=== PATIENT | male | born 1940 | race Caucasian/White ===

== ENCOUNTER 2023-07-10 11:41 | Outpatient (CLI) | payer MEDICARE, BC ==
[~2023-07-10 11:41] MED LIST: ATORVASTATIN PO; LISINOPRIL PO; TRAZ-256 PO; ZOLP10TA5 PO
[2023-07-10 12:24] LABS: BASOPHILS % (AUTO) 0.6 % (0-1); EOSINOPHILS # (AUTO) 0.1 X10'3 (0-0.9); EOSINOPHILS % (AUTO) 1.3 % (0-6); HEMATOCRIT 23.3 % (42.0-52.0); HEMOGLOBIN 7.5 g/dl (14.0-17.9); LYMPHOCYTES # (AUTO) 0.6 X10'3 (1.1-4.8); LYMPHOCYTES % (AUTO) 7.1 % (21-51); MEAN CORPUSCULAR HEMOGLOBIN 22.9 PG (27.0-31.0); MEAN CORPUSCULAR HGB CONC 32.1 g/dL (33.0-36.5); MEAN CORPUSCULAR VOLUME 71.3 FL (78-98); MEAN PLATELET VOLUME 7.5 FL (7.4-10.4); MONOCYTES # (AUTO) 0.6 X10'3 (0-0.9); MONOCYTES % (AUTO) 7.1 % (2-12); NEUTROPHILS # (AUTO) 6.8 X10'3 (1.8-7.7); NEUTROPHILS % (AUTO) 83.9 % (42-75); PLATELET COUNT 301 X10'3 (140-440); RED BLOOD COUNT 3.26 X10'6 (4.70-6.10); RED CELL DISTRIBUTION WIDTH 20.3 % (11.5-14.5); WHITE BLOOD COUNT 8.1 X10'3 (4.5-11.0)
[2023-07-10 12:30] LABS: ALBUMIN 3.3 G/DL (3.4-5.0); ANION GAP 10 (8-16); BLOOD UREA NITROGEN 40 MG/DL (7-18); BUN/CREATININE RATIO 25.2 (10.0-20.0); CALCIUM 8.7 MG/DL (8.5-10.1); CHLORIDE 107 MMOL/L (99-107); CREATININE 1.59 MG/DL (0.60-1.10); GLUCOSE 111 MG/DL (70-104); POTASSIUM 4.1 MMOL/L (3.5-5.1); SODIUM 141 MMOL/L (135-145); TOTAL CARBON DIOXIDE 24.2 MMOL/L (24-32); eGFR 42 ML/MIN
[2023-07-10 12:33] LABS: APTT 26 SECONDS (22-32); PROTHROMBIN TIME 9.9 SECONDS (9.0-12.0)
[2023-07-10 12:35] LABS: INR 0.9 INR
[2023-07-10 13:12] LABS: PLATELET ESTIMATE NORMAL
[2023-07-10 13:13] LABS: ANISOCYTOSIS 3+; ELLIPTOCYTES FEW; HYPOCHROMASIA 1+; MICROCYTOSIS 1+; POLYCHROMASIA 1+; SPHEROCYTES FEW
== END 2023-07-10 23:59 | disposition home or self-care (01) ==
LOC: LAB 11:41 → EDSTATUS 07-13 18:00
PROVIDERS: ATTEND Student in an Organized Health Care Education/Training Program
DX: I65.23 Occlusion and stenosis of bilateral carotid arteries (principal); R06.02 Shortness of breath; I10 Essential (primary) hypertension; E78.5 Hyperlipidemia, unspecified; R42 Dizziness and giddiness; R01.1 Cardiac murmur, unspecified; I20.8 Other forms of angina pectoris
CPT/HCPCS: 36415; 80048; 85008; 85025; 85610; 85730

== ENCOUNTER 2023-07-17 11:46 | Day surgery (SDC) | payer MEDICARE, BC ==
[~2023-07-17] VITALS: Ht 175.3 cm; Wt 100.8 kg
[2023-07-17] MEDS ORDERED: normal saline 1,000 ML IV SCH (12:15)
[2023-07-17] MEDS ORDERED: diphenhydrAMINE 25mg capsule PO PRN (12:15)
[2023-07-17] MEDS ORDERED: LORazepam 0.5 MG tablet PO PRN (12:15)
[2023-07-17 12:20] VITALS: BP 103/61; PULSE 82; RESP 16; TEMP 98.2; O2SAT 97
[2023-07-17] MEDS ORDERED: ATOR-2 PO (12:22)
[2023-07-17] MEDS ORDERED: LISI1TAB51 PO (12:22)
[2023-07-17] MEDS ORDERED: TADA20TA43 PO (12:23)
[2023-07-17] MEDS ORDERED: FLO0.4C (12:23)
[2023-07-17] MEDS ORDERED: CLOP75TA34 PO (12:23)
[2023-07-17 12:56] LABS: BASOPHILS # (AUTO) 0.1 X10'3 (0-0.2); BASOPHILS % (AUTO) 1.1 % (0-1); EOSINOPHILS # (AUTO) 0.2 X10'3 (0-0.9); EOSINOPHILS % (AUTO) 4.3 % (0-6); LYMPHOCYTES # (AUTO) 0.7 X10'3 (1.1-4.8); LYMPHOCYTES % (AUTO) 13.8 % (21-51); MEAN CORPUSCULAR HEMOGLOBIN 21.8 PG (27.0-31.0); MEAN CORPUSCULAR HGB CONC 30.9 g/dL (33.0-36.5); MEAN CORPUSCULAR VOLUME 70.7 FL (78-98); MEAN PLATELET VOLUME 6.9 FL (7.4-10.4); MONOCYTES # (AUTO) 0.7 X10'3 (0-0.9); MONOCYTES % (AUTO) 13.7 % (2-12); NEUTROPHILS # (AUTO) 3.6 X10'3 (1.8-7.7); NEUTROPHILS % (AUTO) 67.1 % (42-75); PLATELET COUNT 333 X10'3 (140-440); RED BLOOD COUNT 2.88 X10'6 (4.70-6.10); RED CELL DISTRIBUTION WIDTH 19.3 % (11.5-14.5); WHITE BLOOD COUNT 5.4 X10'3 (4.5-11.0)
[2023-07-17 13:00] LABS: HEMATOCRIT 20.4 % (42.0-52.0); HEMOGLOBIN 6.3 g/dl (14.0-17.9)
--- NOTE | 2023-07-17 13:00 | NUR ---
Critical H/H called to Dr. Cannon pt advised to go to ER.
[2023-07-17 13:04] LABS: ALBUMIN 3.1 G/DL (3.4-5.0); ANION GAP 7 (8-16); BLOOD UREA NITROGEN 29 MG/DL (7-18); BUN/CREATININE RATIO 20.1 (10.0-20.0); CALCIUM 8.6 MG/DL (8.5-10.1); CHLORIDE 109 MMOL/L (99-107); CREATININE 1.44 MG/DL (0.60-1.10); GLUCOSE 95 MG/DL (70-104); SODIUM 140 MMOL/L (135-145); TOTAL CARBON DIOXIDE 23.8 MMOL/L (24-32); eCRCL 40 ML/MIN; eGFR 47 ML/MIN
[2023-07-17 13:09] LABS: APTT 27 SECONDS (22-32); PROTHROMBIN TIME 10.4 SECONDS (9.0-12.0)
[2023-07-17 13:25] LABS: ANISOCYTOSIS 2+; HYPOCHROMASIA 1+; MICROCYTOSIS 1+; PLATELET ESTIMATE NORMAL
[2023-07-17 13:26] LABS: ELLIPTOCYTES FEW; POLYCHROMASIA FEW; ROULEAUX 1+; SCHISTOCYTES FEW
--- NOTE | 2023-07-17 13:28 | NUR ---
Pt taken to ER bed 13 via WC with all belongings.
[2023-07-17] MEDS ORDERED: FINA5TAB11 PO (15:58)
[2023-07-17] MEDS ORDERED: FLO0.4C PO (15:58)
[2023-07-17] MEDS ORDERED: IBUP-1984 PO (15:59)
[2023-07-17] MEDS ORDERED: MELA3TAB41 PO (15:59)
[2023-07-17] MEDS ORDERED: ACET-812 PO (16:01)
== END 2023-07-17 13:45 | disposition home or self-care (01) ==
LOC: SSTAY O 11:46
PROVIDERS: ATTEND Student in an Organized Health Care Education/Training Program
DX: R07.89 Other chest pain (principal); Z53.8 Procedure and treatment not carried out for other reasons; R06.02 Shortness of breath; I10 Essential (primary) hypertension; E78.5 Hyperlipidemia, unspecified; I65.29 Occlusion and stenosis of unspecified carotid artery; Z79.899 Other long term (current) drug therapy; Z79.01 Long term (current) use of anticoagulants; Z88.2 Allergy status to sulfonamides
CPT/HCPCS: 36415; 80048; 85008; 85025; 85610; 85730; 93005; J7030

== ENCOUNTER 2023-07-17 13:49 | Inpatient (IN) | payer MEDICARE, BC ==
[~2023-07-17] VITALS: Ht 175.3 cm; Wt 102.3 kg
[~2023-07-17 13:49] MED LIST changes: +ATOR-2 PO; +CLOP75TA34 PO; +FLO0.4C; +LISI1TAB51 PO; +TADA20TA43 PO
[2023-07-17] MEDS ORDERED: pantoprazole 40mg IV 80 MG in normal saline 100ml IV soln 100 ML IV ONE (15:05)
--- NOTE | 2023-07-17 15:09 | NUR ---
tech attempted to do pt EKG, doctor in the room upon arrival. Doc postponed EKG.
[2023-07-17 15:47] LABS: BASOPHILS # (AUTO) 0.1 X10'3 (0-0.2); EOSINOPHILS # (AUTO) 0.3 X10'3 (0-0.9); EOSINOPHILS % (AUTO) 3.5 % (0-6); HEMATOCRIT 23.7 % (42.0-52.0); HEMOGLOBIN 7.5 g/dl (14.0-17.9); LYMPHOCYTES # (AUTO) 1.1 X10'3 (1.1-4.8); LYMPHOCYTES % (AUTO) 14.6 % (21-51); MEAN CORPUSCULAR HEMOGLOBIN 22.5 PG (27.0-31.0); MEAN CORPUSCULAR HGB CONC 31.9 g/dL (33.0-36.5); MEAN CORPUSCULAR VOLUME 70.5 FL (78-98); MEAN PLATELET VOLUME 6.9 FL (7.4-10.4); MONOCYTES # (AUTO) 0.7 X10'3 (0-0.9); MONOCYTES % (AUTO) 9.5 % (2-12); NEUTROPHILS # (AUTO) 5.3 X10'3 (1.8-7.7); NEUTROPHILS % (AUTO) 71.4 % (42-75); PLATELET COUNT 389 X10'3 (140-440); RED BLOOD COUNT 3.36 X10'6 (4.70-6.10); RED CELL DISTRIBUTION WIDTH 19.4 % (11.5-14.5); WHITE BLOOD COUNT 7.5 X10'3 (4.5-11.0)
[2023-07-17 15:57] LABS: RED BLOOD COUNT 3.4 X10'6 (4.70-6.10); RETICULOCYTE % (AUTO) 1.8 % (0.5-1.5)
[2023-07-17] MEDS ORDERED: FLO0.4C PO (15:58)
[2023-07-17] MEDS ORDERED: FINA5TAB11 PO (15:58)
[2023-07-17] MEDS ORDERED: IBUP-1984 PO (15:59)
[2023-07-17] MEDS ORDERED: MELA3TAB41 PO (15:59)
[2023-07-17 16:00] LABS: APTT 27 SECONDS (22-32); INR 0.9 INR; PROTHROMBIN TIME 10.2 SECONDS (9.0-12.0)
[2023-07-17] MEDS ORDERED: ACET-812 PO (16:01)
[2023-07-17 16:02] LABS: ALANINE AMINOTRANSFERASE 19 U/L (12-78); ALBUMIN 3.7 G/DL (3.4-5.0); ALBUMIN/GLOBULIN RATIO 1.1 (1.1-1.5); ALKALINE PHOSPHATASE 99 IU/L (46-116); ANION GAP 10 (8-16); ASPARTATE AMINO TRANSFERASE 12 U/L (10-37); BILIRUBIN,TOTAL 0.4 MG/DL (0.1-1.0); BLOOD UREA NITROGEN 27 MG/DL (7-18); BUN/CREATININE RATIO 19.9 (10.0-20.0); CALCIUM 9.1 MG/DL (8.5-10.1); CHLORIDE 107 MMOL/L (99-107); CREATININE 1.36 MG/DL (0.60-1.10); GLUCOSE 97 MG/DL (70-104); SODIUM 142 MMOL/L (135-145); TOTAL PROTEIN 7.2 G/DL (6.4-8.2); eCRCL 42 ML/MIN; eGFR 50 ML/MIN
[2023-07-17 16:10] LABS: MAGNESIUM 2.2 MG/DL (1.5-2.4); PRO BRAIN NATRIURETIC PEPTIDE 285 PG/ML (0-450)
[2023-07-17] MEDS ORDERED: potassium Cl 20 mEq SR tablet PO PRN ×2 (17:20)
[2023-07-17] MEDS ORDERED: mag hydrox/Alum hydrox/simeth 30ml oral suspension PO PRN (17:20)
[2023-07-17] MEDS ORDERED: magnesium hydroxide 30ml (MOM) UD suspension PO PRN (17:20)
[2023-07-17] MEDS ORDERED: potassium Cl 40MEQ/1/2NS 520ml 520 ML IV PRN (17:20)
[2023-07-17] MEDS ORDERED: HYDROcodone/acetaminophen 10/325mg tab PO PRN (17:20)
[2023-07-17] MEDS ORDERED: ondansetron 4mg rapidly disintigrating tab PO PRN (17:20)
[2023-07-17] MEDS ORDERED: magnesium 2GM in 50ml NS 50 ML IV PRN (17:20)
[2023-07-17] MEDS ORDERED: magnesium Cl slow-release 64mg tablet PO PRN (17:20)
[2023-07-17] MEDS ORDERED: magnesium 4gm in 100ml NS 100 ML IV PRN (17:20)
[2023-07-17] MEDS ORDERED: morphine 2 MG/ML inj. syringe IV PRN ×2 (17:20)
[2023-07-17] MEDS ORDERED: acetaminophen 325mg tablet PO PRN ×2 (17:20)
[2023-07-17] MEDS ORDERED: ondansetron/PF 4mg/2ml inj IV PRN (17:20)
[2023-07-17] MEDS ORDERED: HYDROcodone/acetaminophen 5mg/325mg tablet PO PRN (17:20)
[2023-07-17 18:04] VITALS: BP 152/68; PULSE 82; RESP 15; TEMP 98.5
[2023-07-17] MEDS ORDERED: non-formulary drug (Acetaminophen (Tylenol Extra Strength) 2 TABLET) PO PRN (18:05)
[2023-07-17] MEDS ORDERED: non-formulary drug (Tadalafil 1 TAB) PO PRN (18:05)
[2023-07-17 18:25] VITALS: BP 143/70; PULSE 83; RESP 14; TEMP 97.8
[2023-07-17 19:26] VITALS: BP 151/70; PULSE 77; RESP 13; TEMP 97.9
[2023-07-17] MEDS: docusate sod 100mg capsule PO SCH (20:00)
[2023-07-17] MEDS: K and/or MAG REPLACEMENT MC SCH (20:13)
[2023-07-17 20:25] VITALS: BP 160/75; PULSE 81; RESP 16; TEMP 98.1
[2023-07-17 20:43] VITALS: BP 149/70; PULSE 75; RESP 14; TEMP 98
[2023-07-17] MEDS: lisinopril 20mg tablet PO SCH (20:43)
[2023-07-17] MEDS ORDERED: temazepam 15mg capsule PO PRN (21:00)
[2023-07-17] MEDS ORDERED: Melatonin 3mg tablet PO SCH (21:00)
[2023-07-17 23:08] LABS: HEMATOCRIT 22.9 % (42.0-52.0); HEMOGLOBIN 7.5 g/dl (14.0-17.9); MEAN CORPUSCULAR HEMOGLOBIN 23.7 PG (27.0-31.0); MEAN CORPUSCULAR HGB CONC 32.6 g/dL (33.0-36.5); MEAN CORPUSCULAR VOLUME 72.5 FL (78-98); MEAN PLATELET VOLUME 7.2 FL (7.4-10.4); PLATELET COUNT 322 X10'3 (140-440); RED BLOOD COUNT 3.16 X10'6 (4.70-6.10); RED CELL DISTRIBUTION WIDTH 20.5 % (11.5-14.5); WHITE BLOOD COUNT 6.5 X10'3 (4.5-11.0)
[2023-07-18] VITALS (12 sets, daily range): BP systolic 121–146; BP diastolic 43–81; PULSE 68–87; RESP 11–21; TEMP 97.8–98.5; O2SAT 96–97
[2023-07-18 04:19] LABS: APTT 26 SECONDS (22-32); PROTHROMBIN TIME 10.3 SECONDS (9.0-12.0)
[2023-07-18 04:23] LABS: ALANINE AMINOTRANSFERASE 17 U/L (12-78); ALKALINE PHOSPHATASE 83 IU/L (46-116); ANION GAP 11 (8-16); ASPARTATE AMINO TRANSFERASE 10 U/L (10-37); BILIRUBIN,TOTAL 0.9 MG/DL (0.1-1.0); BLOOD UREA NITROGEN 21 MG/DL (7-18); BUN/CREATININE RATIO 18.1 (10.0-20.0); CALCIUM 8.5 MG/DL (8.5-10.1); CHLORIDE 109 MMOL/L (99-107); CREATININE 1.16 MG/DL (0.60-1.10); GLUCOSE 95 MG/DL (70-104); MAGNESIUM 2.1 MG/DL (1.5-2.4); POTASSIUM 3.8 MMOL/L (3.5-5.1); SODIUM 144 MMOL/L (135-145); TOTAL CARBON DIOXIDE 23.9 MMOL/L (24-32); eCRCL 49 ML/MIN; eGFR 60 ML/MIN
[2023-07-18 04:28] LABS: BASOPHILS # (AUTO) 0.1 X10'3 (0-0.2); BASOPHILS % (AUTO) 1.3 % (0-1); EOSINOPHILS # (AUTO) 0.3 X10'3 (0-0.9); EOSINOPHILS % (AUTO) 5.3 % (0-6); HEMATOCRIT 24.9 % (42.0-52.0); HEMOGLOBIN 7.8 g/dl (14.0-17.9); LYMPHOCYTES # (AUTO) 0.9 X10'3 (1.1-4.8); LYMPHOCYTES % (AUTO) 15.4 % (21-51); MEAN CORPUSCULAR HEMOGLOBIN 22.8 PG (27.0-31.0); MEAN CORPUSCULAR HGB CONC 31.5 g/dL (33.0-36.5); MEAN CORPUSCULAR VOLUME 72.5 FL (78-98); MEAN PLATELET VOLUME 7.2 FL (7.4-10.4); MONOCYTES # (AUTO) 0.7 X10'3 (0-0.9); NEUTROPHILS # (AUTO) 4.1 X10'3 (1.8-7.7); PLATELET COUNT 333 X10'3 (140-440); RED BLOOD COUNT 3.43 X10'6 (4.70-6.10); RED CELL DISTRIBUTION WIDTH 20.7 % (11.5-14.5); WHITE BLOOD COUNT 6.2 X10'3 (4.5-11.0)
[2023-07-18 05:41] LABS: OCCULT BLOOD STOOL POSITIVE (Neg)
[2023-07-18 06:11] LABS: ANISOCYTOSIS 3+; MICROCYTOSIS 1+; PLATELET ESTIMATE NORMAL
[2023-07-18] MEDS: K and/or MAG REPLACEMENT MC SCH ×2 (08:00→20:00)
[2023-07-18] MEDS: lisinopril 20mg tablet PO SCH ×2 (09:16→20:39)
[2023-07-18] MEDS: HYDROchlorothiazide 12.5mg capsule PO SCH (09:17)
[2023-07-18] MEDS: docusate sod 100mg capsule PO SCH ×2 (09:17→20:39)
[2023-07-18] MEDS: tamsulosin 0.4mg capsule PO SCH (09:17)
[2023-07-18] MEDS: atorvastatin 20mg tablet PO SCH (09:18)
[2023-07-18] MEDS: finasteride 5mg tablet PO SCH (09:49)
[2023-07-18 13:31] LABS: HEMATOCRIT 30.2 % (42.0-52.0); HEMOGLOBIN 9.7 g/dl (14.0-17.9); MEAN CORPUSCULAR HEMOGLOBIN 24.1 PG (27.0-31.0); MEAN CORPUSCULAR HGB CONC 32.2 g/dL (33.0-36.5); MEAN CORPUSCULAR VOLUME 74.8 FL (78-98); MEAN PLATELET VOLUME 7.1 FL (7.4-10.4); PLATELET COUNT 380 X10'3 (140-440); RED BLOOD COUNT 4.04 X10'6 (4.70-6.10); RED CELL DISTRIBUTION WIDTH 21.6 % (11.5-14.5); WHITE BLOOD COUNT 7.5 X10'3 (4.5-11.0)
[2023-07-18 13:37] LABS: % IRON SATURATION 4 % (11-46); IRON 15 UG/DL (53-167); TOTAL IRON BINDING CAPACITY 393 UG/DL (259-388)
--- NOTE | 2023-07-18 18:22 | NUR ---
Problems reprioritized. Patient report given, questions answered & plan of care reviewed with MICHELE MARKETING OUTREACH COORDINATOR.
[2023-07-18] MEDS: Melatonin 3mg tablet PO SCH (20:39)
[2023-07-18] MEDS: pantoprazole 40mg Tablet.DR PO SCH (20:39)
[2023-07-19] VITALS (19 sets, daily range): BP systolic 102–139; BP diastolic 35–75; PULSE 63–88; RESP 16–19; TEMP 97.5–98.1; O2SAT 96–98
--- NOTE | 2023-07-19 06:30 | NUR ---
Patient in room PCU 3016. I have received report from Aisha STREETER and had the opportunity to ask questions and assume patient care.
[2023-07-19 07:39] LABS: BASOPHILS # (AUTO) 0.1 X10'3 (0-0.2); BASOPHILS % (AUTO) 0.8 % (0-1); EOSINOPHILS # (AUTO) 0.2 X10'3 (0-0.9); EOSINOPHILS % (AUTO) 3.4 % (0-6); HEMATOCRIT 27.4 % (42.0-52.0); HEMOGLOBIN 8.9 g/dl (14.0-17.9); LYMPHOCYTES # (AUTO) 0.9 X10'3 (1.1-4.8); LYMPHOCYTES % (AUTO) 13.5 % (21-51); MEAN CORPUSCULAR HEMOGLOBIN 24.2 PG (27.0-31.0); MEAN CORPUSCULAR HGB CONC 32.6 g/dL (33.0-36.5); MEAN CORPUSCULAR VOLUME 74.2 FL (78-98); MEAN PLATELET VOLUME 7.2 FL (7.4-10.4); MONOCYTES # (AUTO) 0.9 X10'3 (0-0.9); MONOCYTES % (AUTO) 12.6 % (2-12); NEUTROPHILS # (AUTO) 4.8 X10'3 (1.8-7.7); NEUTROPHILS % (AUTO) 69.7 % (42-75); PLATELET COUNT 368 X10'3 (140-440); RED BLOOD COUNT 3.69 X10'6 (4.70-6.10); RED CELL DISTRIBUTION WIDTH 21.6 % (11.5-14.5); WHITE BLOOD COUNT 6.9 X10'3 (4.5-11.0)
--- NOTE | 2023-07-19 07:48 | NUR ---
This RN has reviewed and agrees with the SUPERVISOR ORNAMENTAL IRONWORKING's physical assessment of this pt.
[2023-07-19 07:50] LABS: APTT 27 SECONDS (22-32); PROTHROMBIN TIME 10.5 SECONDS (9.0-12.0)
[2023-07-19] MEDS: K and/or MAG REPLACEMENT MC SCH ×2 (08:00→20:00)
[2023-07-19 08:19] LABS: ALANINE AMINOTRANSFERASE 14 U/L (12-78); ALKALINE PHOSPHATASE 84 IU/L (46-116); ANION GAP 10 (8-16); ASPARTATE AMINO TRANSFERASE 12 U/L (10-37); BILIRUBIN,TOTAL 0.5 MG/DL (0.1-1.0); BLOOD UREA NITROGEN 17 MG/DL (7-18); BUN/CREATININE RATIO 16.2 (10.0-20.0); CALCIUM 8.8 MG/DL (8.5-10.1); CHLORIDE 107 MMOL/L (99-107); CREATININE 1.05 MG/DL (0.60-1.10); GLUCOSE 97 MG/DL (70-104); MAGNESIUM 2.1 MG/DL (1.5-2.4); POTASSIUM 3.9 MMOL/L (3.5-5.1); SODIUM 141 MMOL/L (135-145); TOTAL CARBON DIOXIDE 24.1 MMOL/L (24-32); TOTAL PROTEIN 6.1 G/DL (6.4-8.2); eCRCL 54 ML/MIN; eGFR 68 ML/MIN
[2023-07-19 08:31] LABS: ANISOCYTOSIS 3+; MICROCYTOSIS 1+; PLATELET ESTIMATE NORMAL; POIKILOCYTOSIS FEW
[2023-07-19] MEDS: pantoprazole 40mg Tablet.DR PO SCH ×2 (08:49→21:06)
[2023-07-19] MEDS: finasteride 5mg tablet PO SCH (08:49)
[2023-07-19] MEDS: docusate sod 100mg capsule PO SCH ×2 (08:49→20:00)
[2023-07-19] MEDS: lisinopril 20mg tablet PO SCH ×2 (08:49→21:06)
[2023-07-19] MEDS: atorvastatin 20mg tablet PO SCH (08:49)
[2023-07-19] MEDS: HYDROchlorothiazide 12.5mg capsule PO SCH (08:49)
[2023-07-19] MEDS: tamsulosin 0.4mg capsule PO SCH (08:49)
--- NOTE | 2023-07-19 08:55 | NUR ---
Patient left unit to GI lab.
[2023-07-19] MEDS ORDERED: LIDOcaine Viscous 15ml cup ONE (09:01)
[2023-07-19] MEDS ORDERED: fentaNYL/PF 50MCG/1 ML 2ML syringe ONE (09:01)
[2023-07-19] MEDS ORDERED: MIDAZolam 1 MG/ML 5ML VIAL ONE (09:01)
--- NOTE | 2023-07-19 10:10 | NUR ---
Patient returned to unit via wheel chair from GI lab. No complaint of pain or discomfort noted.
[2023-07-19] MEDS ORDERED: PEG 3350/Na sulf,bicarb,Cl/KCl oral sol 4 liter bottle PO ONE (10:40)
--- NOTE | 2023-07-19 17:26 | NUR ---
AGREE WITH TRANSIT MIXER DRIVER AM ASSESSMENT
--- NOTE | 2023-07-19 18:16 | NUR ---
Problems reprioritized. Patient report given, questions answered & plan of care reviewed with Aisha ENGINEER REMOTE CONTROL DIESEL.
[2023-07-19] MEDS: Melatonin 3mg tablet PO SCH (21:06)
[2023-07-20] VITALS (13 sets, daily range): BP systolic 109–144; BP diastolic 54–69; PULSE 62–90; RESP 12–18; TEMP 97–98; O2SAT 96–98
--- NOTE | 2023-07-20 06:20 | NUR ---
Patient in room PCU 3016. I have received report from Aisha STREETER and had the opportunity to ask questions and assume patient care.
[2023-07-20 06:27] LABS: APTT 27 SECONDS (22-32); PROTHROMBIN TIME 10.6 SECONDS (9.0-12.0)
[2023-07-20 06:53] LABS: ALANINE AMINOTRANSFERASE 17 U/L (12-78); ALBUMIN 2.9 G/DL (3.4-5.0); ALKALINE PHOSPHATASE 87 IU/L (46-116); ANION GAP 10 (8-16); ASPARTATE AMINO TRANSFERASE 14 U/L (10-37); BILIRUBIN,TOTAL 0.6 MG/DL (0.1-1.0); BLOOD UREA NITROGEN 12 MG/DL (7-18); BUN/CREATININE RATIO 11.2 (10.0-20.0); CALCIUM 8.5 MG/DL (8.5-10.1); CHLORIDE 108 MMOL/L (99-107); CREATININE 1.07 MG/DL (0.60-1.10); GLUCOSE 100 MG/DL (70-104); MAGNESIUM 1.9 MG/DL (1.5-2.4); POTASSIUM 3.9 MMOL/L (3.5-5.1); SODIUM 142 MMOL/L (135-145); TOTAL CARBON DIOXIDE 24.4 MMOL/L (24-32); TOTAL PROTEIN 5.8 G/DL (6.4-8.2); eCRCL 53 ML/MIN; eGFR 66 ML/MIN
[2023-07-20 07:02] LABS: BASOPHILS # (AUTO) 0.1 X10'3 (0-0.2); BASOPHILS % (AUTO) 0.9 % (0-1); EOSINOPHILS # (AUTO) 0.2 X10'3 (0-0.9); EOSINOPHILS % (AUTO) 3.3 % (0-6); HEMATOCRIT 27.2 % (42.0-52.0); HEMOGLOBIN 8.7 g/dl (14.0-17.9); LYMPHOCYTES # (AUTO) 0.8 X10'3 (1.1-4.8); LYMPHOCYTES % (AUTO) 10.4 % (21-51); MEAN CORPUSCULAR HEMOGLOBIN 23.6 PG (27.0-31.0); MEAN CORPUSCULAR VOLUME 73.7 FL (78-98); MEAN PLATELET VOLUME 7.1 FL (7.4-10.4); MONOCYTES # (AUTO) 0.9 X10'3 (0-0.9); MONOCYTES % (AUTO) 11.7 % (2-12); NEUTROPHILS # (AUTO) 5.4 X10'3 (1.8-7.7); NEUTROPHILS % (AUTO) 73.7 % (42-75); PLATELET COUNT 355 X10'3 (140-440); RED BLOOD COUNT 3.69 X10'6 (4.70-6.10); RED CELL DISTRIBUTION WIDTH 22.1 % (11.5-14.5); WHITE BLOOD COUNT 7.4 X10'3 (4.5-11.0)
[2023-07-20] MEDS: docusate sod 100mg capsule PO SCH (08:00)
[2023-07-20] MEDS: K and/or MAG REPLACEMENT MC SCH (08:00)
[2023-07-20] MEDS: atorvastatin 20mg tablet PO SCH (08:33)
[2023-07-20] MEDS: tamsulosin 0.4mg capsule PO SCH (08:33)
[2023-07-20] MEDS: finasteride 5mg tablet PO SCH (08:34)
[2023-07-20] MEDS: HYDROchlorothiazide 12.5mg capsule PO SCH (08:34)
[2023-07-20] MEDS: pantoprazole 40mg Tablet.DR PO SCH (08:34)
[2023-07-20] MEDS: lisinopril 20mg tablet PO SCH (08:34)
--- NOTE | 2023-07-20 11:18 | NUR ---
DIRECTOR [employer]UR[employer] documentation: I have reviewed interventions, assessments performed and documented by DIRECTOR [employer] INSUR[employer] .
--- NOTE | 2023-07-20 12:42 | NUR ---
Patient left unit to GI lab for colonoscopy.
[2023-07-20] MEDS ORDERED: MIDAZolam 1 MG/ML 5ML VIAL ONE (13:11)
[2023-07-20] MEDS ORDERED: fentaNYL/PF 50MCG/1 ML 2ML syringe ONE ×2 (13:11→13:14)
--- NOTE | 2023-07-20 14:35 | NUR ---
Patient returned from GI lab via wheel chair no complaints of pain noted
--- NOTE | 2023-07-20 14:55 | NUR ---
PAGER ID: [phone] MESSAGE: [phone] Jessi Patient is back from GI lab. Thank you Mara STREETER [phone]
--- NOTE | 2023-07-20 15:00 | NUR ---
Spoke with Dr Grover about patient's procedure. states he is going to be discharged then.
[2023-07-20] MEDS ORDERED: PANT40TA54 PO (15:01)
--- NOTE | 2023-07-20 15:51 | NUR ---
Spoke with Charge nurse Eitan LEWIS about if patient has to wait till post-op vs are done to send patient. Eitan states to give education on post op education. Patient is able to maintain his airway and ambulate without trouble. Discharge instructions given to patient. Educated patient on conscious sedation Patient verbalizes understanding.
--- NOTE | 2023-07-20 16:05 | NUR ---
Patient discharged home with all belongings and discharge instructions. Discharge instructions gone over thoroughly with patient and daughter. IV removed and tele monitor removed and returned to telephone surveyor. Escorted out via wheel chair and left in private vehicle.
== END 2023-07-20 16:05 | disposition home or self-care (01) | DRG 377 ==
LOC: ER 13:50 → ED HOLD 17:20 → EDBEDREQ 07-18 05:19 → PCU 3S 07-18 08:25
PROVIDERS: ADMIT Family Medicine; ATTEND Internal Medicine
PROC: 30233N1 Transfusion of Nonautologous Red Blood Cells into Peripheral Vein, Percutaneous Approach (ICD-10-PCS; principal; 2023-07-17)
PROC: 0DB88ZX Excision of Small Intestine, Via Natural or Artificial Opening Endoscopic, Diagnostic (ICD-10-PCS; 2023-07-17)
PROC: 0DJD8ZZ Inspection of Lower Intestinal Tract, Via Natural or Artificial Opening Endoscopic (ICD-10-PCS; 2023-07-17)
DX: K92.2 Gastrointestinal hemorrhage, unspecified (principal); N17.0 Acute kidney failure with tubular necrosis; D50.9 Iron deficiency anemia, unspecified; E78.00 Pure hypercholesterolemia, unspecified; G89.29 Other chronic pain; I25.10 Atherosclerotic heart disease of native coronary artery without angina pectoris; Z66 Do not resuscitate; Z53.9 Procedure and treatment not carried out, unspecified reason; F32.A Depression, unspecified; R19.5 Other fecal abnormalities; I12.9 Hypertensive chronic kidney disease with stage 1 through stage 4 chronic kidney disease, or unspecified chronic kidney disease; N18.30 Chronic kidney disease, stage 3 unspecified; Z79.02 Long term (current) use of antithrombotics/antiplatelets; Z88.2 Allergy status to sulfonamides; Z88.8 Allergy status to other drugs, medicaments and biological substances; Z79.899 Other long term (current) drug therapy; Z87.891 Personal history of nicotine dependence; Z85.828 Personal history of other malignant neoplasm of skin
CPT/HCPCS: 36415; 36430; 43239; 45385; 71045; 80048; 80053; 82272; 83540; 83550; 83735; 83880; 84484; 85008; 85025; 85027; 85045; 85610; 85730; 86885; 86900; 86901; 86920; 87081; 88305; 88342; 93005; 99152; 99285; A4620; C1889; C9113; G0378; J2250; J3010; J3490; J7030; P9016